=== PATIENT | male | born 1935 | race Caucasian/White ===

== ENCOUNTER 2024-11-02 12:35 | Emergency (ER) | payer MEDICARE, BC ==
[2024-11-02 13:10] VITALS: RESP 16
--- NOTE | 2024-11-02 13:59 | ED ---
General Adult HPI - General Chief complaint: Urogenital Stated complaint: Phimosis Time Seen by Provider: 11/02/24 13:10 Source: patient, family Mode of arrival: ambulatory Limitations: no limitations - History of Present Illness Initial comments: 89 year old male who presents to the ED under the direction of his PCP. Patient states that his home care doctor came to his house and was doing a physical exam. Saw that the patient had phimosis and recommended that he come to the ER to have a circumcision. Patient states that he has been urinating without difficulty. He did not realize that he had become so strictured down there until his PCP mentioned something. He denies pain or discharge. No fevers. No other alleviating, precipitating or modifying factors. - Related Data Previous Rx's Medication Instructions Recorded Betamethasone Valerate [Luxiq 0.1%] 1 applic TOPICAL DAILY #45 gram 11/02/24 Allergies Allergy/AdvReac Type Severity Reaction Status Date / Time No Known Allergies Allergy Verified 11/02/24 13:11 Review of Systems ROS Statement: Those systems with pertinent positive or pertinent negative responses have been documented in the HPI. ROS Other: All systems not noted in ROS Statement are negative. Past Medical History Past Medical History: Cancer, Hypertension Additional Past Medical History / Comment(s): iron deficiency, glaucoma, cancer colon, diverticulitis History of Any Multi-Drug Resistant Organisms: None Reported Past Surgical History: Bowel Resection Past Psychological History: No Psychological Hx Reported Smoking Status: Never smoker Past Alcohol Use History: None Reported Past Drug Use History: None Reported General Exam Limitations: no limitations General appearance: alert, in no apparent distress Head exam: Present: atraumatic, normocephalic, normal inspection Eye exam: Present: normal appearance, PERRL, EOMI. Absent: scleral icterus, conjunctival injection, periorbital swelling ENT exam: Present: normal exam, mucous membranes moist Neck exam: Present: normal inspection. Absent: tenderness, meningismus, lymphadenopathy Respiratory exam: Present: normal lung sounds bilaterally. Absent: respiratory distress, wheezes, rales, rhonchi, stridor Cardiovascular Exam: Present: regular rate, normal rhythm, normal heart sounds. Absent: systolic murmur, diastolic murmur, rubs, gallop, clicks GI/Abdominal exam: Present: soft, normal bowel sounds. Absent: distended, tenderness, guarding, rebound, rigid exam: Present: other (foreskin unable to be retracted but urethral opening is visible). Absent: circumcision Extremities exam: Present: normal inspection, full ROM, normal capillary refill. Absent: tenderness, pedal edema, joint swelling, calf tenderness Back exam: Present: normal inspection Neurological exam: Present: alert, oriented X3, CN II-XII intact Psychiatric exam: Present: normal affect, normal mood Skin exam: Present: warm, dry, intact, normal color. Absent: rash Course Vital Signs 11/02/24 11/02/24 13:06 14:46 Temperature 98.5 F 98 F Pulse Rate 88 80 Respiratory 16 16 Rate Blood Pressure 113/78 148/80 O2 Sat by Pulse 96 98 Oximetry Medical Decision Making - Medical Decision Making Was pt. sent in by a medical professional or institution (, PA, WHOLESALE MANAGER, urgent care, hospital, or senior care...) When possible be specific @ -Patient was sent in by his primary care physician Did you speak to anyone other than the patient for history (EMS, parent, family, police, friend...)? What history was obtained from this source @ -I spoke with the for history Did you review nursing and triage notes (agree or disagree)? Why? @ -I reviewed and agree with nursing and triage notes Were old charts reviewed (outside hosp., previous admission, EMS record, old EKG, old radiological studies, urgent care reports/EKG's, senior care records)? Report findings @ -No old charts were reviewed Differential Diagnosis (chest pain, altered mental status, abdominal pain women, abdominal pain men, vaginal bleeding, weakness, fever, dyspnea, syncope, headache, dizziness, GI bleed, back pain, seizure, CVA, palpatations, mental health, musculoskeletal)? @ -Phimosis, paraphimosis, balanitis EKG interpreted by me (3pts min.). @ -Not done X-rays interpreted by me (1pt min.). @ -None done CT interpreted by me (1pt min.). @ -None done U/S interpreted by me (1pt. min.). @ -None done What testing was considered but not performed or refused? (CT, X-rays, U/S, labs)? Why? @ -None What meds were considered but not given or refused? Why? @ -None Did you discuss the management of the patient with other professionals (professionals i.e. DrSebastian, PA, WHOLESALE MANAGER, lab, RT, psych nurse, case management social worker, commercial print salesman, teacher, financial services officer, supervisor case loading)? Give summary @ -Spoke with Dr. Morales who wants the patient on betamethasone cream daily. He will follow-up in office for possible procedure Was smoking cessation discussed for >3mins.? @ -No Was critical care preformed (if so, how long)? @ -No Were there social determinants of health that impacted care today? How? (Homelessness, low income, unemployed, alcoholism, drug addiction, transportation, low edu. Level, literacy, decrease access to med. care, longterm, rehab)? @ -No Was there de-escalation of care discussed even if they declined (Discuss DNR or withdrawal of care, Hospice)? DNR status @ -No What co-morbidities impacted this encounter? (DM, HTN, Smoking, COPD, CAD, Cancer, CVA, ARF, Chemo, Hep., AIDS, mental health diagnosis, sleep apnea, morbid obesity)? @ -Advanced age Was patient admitted / discharged? Hospital course, mention meds given and route, prescriptions, significant lab abnormalities, going to OR and other pertinent info. @ -Upon arrival patient seen and evaluated in triage. Thorough history and physical exam was performed. Patient does have phimosis however no difficulty with urination. I did call and speak with Dr. Morales who would like the patient on betamethasone cream daily. He will follow-up with him in office for possible surgery. Patient was agreeable to this. Appointment made for the end of November. Patient discharged in stable condition Undiagnosed new problem with uncertain prognosis? @ -No Drug Therapy requiring intensive monitoring for toxicity (Heparin, Nitro, Insulin, Cardizem)? @ -No Were any procedures done? @ -No Diagnosis/symptom? @ -Phimosis Acute, or Chronic, or Acute on Chronic? @ -Chronic Uncomplicated (without systemic symptoms) or Complicated (systemic symptoms)? @ -Uncomplicated Side effects of treatment? @ -No Exacerbation, Progression, or Severe Exacerbation? @ -No Poses a threat to life or bodily function? How? (Chest pain, [place], [place], pneumonia, PE, COPD, DKA, ARF, appy, cholecystitis, CVA, Diverticulitis, Homicidal, Suicidal, threat to staff... and all critical care pts) @ -No Disposition Clinical Impression: Phimosis of penis Disposition: HOME SELF-CARE Condition: Stable Instructions (If sedation given, give patient instructions): Phimosis (ED) Additional Instructions: Use this cream once every day. There is a chance that this could give the area elasticity and you can avoid surgery. Please follow-up with the urologist at the scheduled appointment on this paperwork Prescriptions: Betamethasone Valerate [Luxiq 0.1%] 1 applic TOPICAL DAILY #45 gram Is patient prescribed a controlled substance at d/c from ED?: No Referrals: Edison Morales MD [STAFF PHYSICIAN] - 12/20/24 2:25 pm (Please bring insurance cards and photo ID to your appointment. ) Maria Guadalupe Moran MD [Primary Care Provider] - 1-2 days Time of Disposition: 14:21
[2024-11-02 15:01] VITALS: BP 148/80; PULSE 80; TEMP 98
== END 2024-11-02 14:46 | disposition home or self-care (01) ==
LOC: EC 12:35
DX: N47.1 Phimosis (principal)
CPT/HCPCS: 99283